=== PATIENT | female | born 1930 | race Caucasian/White ===

== ENCOUNTER 2017-06-14 02:42 | Inpatient (IN) ==
[2017-06-14] MEDS ORDERED: methylPREDNISolone SOD SUC 125 MG/2 ML VIAL IV STA (02:49)
[2017-06-14] MEDS ORDERED: FAMOTIDINE 20 MG/2 ML VIAL IV STA (02:49)
[2017-06-14] MEDS ORDERED: FAMOTIDINE 20 MG/2 ML VIAL IV ONE (02:58)
[2017-06-14] MEDS ORDERED: methylPREDNISolone SOD SUC 125 MG/2 ML VIAL ONE (02:58)
[2017-06-14] MEDS ORDERED: ETOMIDATE 20 MG/10 ML VIAL IV STA (03:11)
[2017-06-14] MEDS ORDERED: SUCCINYLCHOLINE 200 MG/10 ML VIAL IV STA (03:11)
[2017-06-14] MEDS ORDERED: SUCCINYLCHOLINE 200 MG/10 ML VIAL ONE (03:15)
[2017-06-14] MEDS ORDERED: ETOMIDATE 20 MG/10 ML VIAL IV ONE (03:15)
[2017-06-14] MEDS ORDERED: PROPOFOL 1,000 MG/100 ML BOTTLE IV ONE (03:16)
[2017-06-14] MEDS ORDERED: fentaNYL 100 MCG/2 ML VIAL IV STA (03:20)
[2017-06-14] MEDS ORDERED: fentaNYL 100 MCG/2 ML VIAL ONE (03:22)
[2017-06-14] MEDS: SODIUM CHLORIDE 0.9% 1,000 ML IV SCH ×3 (03:23→18:00)
[2017-06-14] MEDS: PROPOFOL 1,000 MG/100 ML BOTTLE IV SCH (03:23)
[2017-06-14 03:35] LABS: Basophils % 0.5 % (0.0-0.8); Eosinophils # 0.3 10*3/uL (0.0-0.87); Eosinophils % 3.2 % (0.00-10.9); Hematocrit 35.9 VOL% (35.7-47.0); Hemoglobin 11.6 GM/DL (12.0-16.0); Immature Granulocytes % 0.2 %; Immature Granulocytes Absolute 0.02 #; Lymphocytes % 34.9 % (21.3-54.2); Mean Corpuscular HGB Conc 32.3 GM/DL (32-36); Mean Corpuscular Hemoglobin 30 PG (27-34); Mean Corpuscular Volume 91.3 FL (87-102); Monocytes # 0.8 10*3/uL (0.11-0.8); Monocytes % 9.2 % (1.7-12.7); Neutrophils # 4.4 10*3/uL (1.4-7.4); Platelet Count 235 T/CUMM (130-400); Red Blood Count 3.93 MC/CUMM (3.8-5.5); Red Cell Distribution Width 14.9 % (9.3-17.3); White Blood Count 8.5 T/CUMM (4-12)
[2017-06-14] MEDS ORDERED: VECURONIUM 10 MG VIAL IV ONE (03:37)
[2017-06-14] MEDS ORDERED: VECURONIUM 10 MG VIAL IV STA (03:38)
[2017-06-14 03:49] LABS: Calcium 9.1 MG/DL (8.5-10.1); Osmolality,Calculated 278.7 MOS/KG (273-304)
[2017-06-14] MEDS ORDERED: DEXTROSE 50% 25 GM/50 ML VIAL IV PRN (03:55)
[2017-06-14] MEDS ORDERED: GLUCAGON 1 MG VIAL IM PRN (03:55)
[2017-06-14] MEDS ORDERED: ALBUTEROL 2.5 MG/3 ML NEB RESP TX PRN (03:55)
[2017-06-14 03:59] LABS: ABG Base Excess -5.1 MMOL/L (-2.5-2.5); ABG Oxygen Saturation 98.5 % (95-100); ABG PCO2 43.1 MM HG (35-48); ABG PH 7.305 (7.35-7.45); ABG TCO2 22.3 MMOL/L (23-27); Allen Test Positive; Pt O2 Delivery Device Ventilator
[2017-06-14] MEDS ORDERED: hydrALAZINE 20 MG/1 ML VIAL IV PRN (04:05)
--- NOTE | 2017-06-14 04:19 | Hospitalist History & Physical ---
Assessment and Plan (1) Angioedema Status: Acute Current Visit: Yes (2) DM2 (diabetes mellitus, type 2) Status: Chronic Current Visit: No (3) Dyslipidemia Status: Chronic Current Visit: No (4) Hypertension Status: Chronic Assessment and plan: Patient required intubation in the emergency room. We will continue ventilator support and schedule her with antihistamines and steroids. Will continue home meds as appropriate. Hopefully she can be weaned off the ventilator fairly quickly. Will consult pulmonary for their input. Reevaluate patient in the morning and monitor labs. Current Visit: No Qualifiers: Hypertension type: essential hypertension Qualified Code(s): I10 - Essential (primary) hypertension History of Present Illness Chief complaint: Angioedema History of present illness: Ms. 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 Patient woke up with tongue swelling. Patient could not breathe and she had a medical alert button to push and called 911. After that she subsequently called her son. Her son came up to the hospital met her up here. Her tongue was protruding out of her mouth and swelling consistent with angioedema. She was intubated in the emergency room I was consulted for the admission. Home Medications Medication Instructions Recorded Confirmed Type Aspirin [Ecotrin] 81 mg PO DAILY 07/03/15 06/14/17 History Atorvastatin [Lipitor] 20 mg PO BEDTIME 07/03/15 06/14/17 History Clopidogrel [Plavix] 75 mg PO DAILY 07/03/15 06/14/17 History Furosemide Tab [Lasix Tab] 40 mg PO DAILY PRN 07/03/15 06/14/17 History Gabapentin 300 mg PO TID 07/03/15 06/14/17 History Lisinopril 40 mg PO DAILY 07/03/15 06/14/17 History Magnesium Chloride [Mag Delay] 128 mg PO BID 07/03/15 06/14/17 History Metoprolol Succinate Xl [Toprol Xl] 50 mg PO DAILY 07/03/15 06/14/17 History Nitroglycerin [Nitroglycerin SL 0.4 mg SL Q5M PRN 07/03/15 06/14/17 History Tab] Pantoprazole Tab [Protonix Tab] 40 mg PO BEDTIME 07/03/15 06/14/17 History Primidone 75 mg PO TID 07/03/15 06/14/17 History Rasagiline [Azilect] 1 mg PO DAILY 07/03/15 06/14/17 History Insulin NPH Hum/Reg Insulin Hm 22 units SUBCUT DAILY W/SUPPER 07/14/15 06/14/17 History [NovoLIN 70/30] Insulin NPH Hum/Reg Insulin Hm 32 units SUBCUT AC BREAKFAST 07/14/15 06/14/17 History [NovoLIN 70/30] Potassium Gluconate 550 mg PO DAILY 10/07/16 06/14/17 History Sitagliptin Phos/Metformin HCl 2 each PO DAILY W/SUPPER 10/07/16 06/14/17 History [Janumet Xr 50-1,000 mg Tablet] Cyanocobalamin (Vitamin B-12) 1,000 mcg PO DAILY 12/22/16 06/14/17 History [Vitamin B-12] Ferrous Sulfate [Ferrous Sulfate 65 mg PO DAILY 06/14/17 06/14/17 History Cap] Allergies Allergy/AdvReac Type Severity Reaction Status Date / Time Erythromycin Base Allergy Unknown Unknown/Unable Verified 06/14/17 02:54 to obtain ciprofloxacin Allergy Unknown/Unable Verified 06/14/17 02:54 to obtain sulfamethoxazole Allergy Unknown/Unable Verified 06/14/17 02:54 [From Bactrim] to obtain trimethoprim [From Bactrim] Allergy Unknown/Unable Verified 06/14/17 02:54 to obtain Medical,Surgical,& Family Hx - Medical History Cardio: History of: CHF, CAD (history of stent), Hypertension, [place], Cardiovascular Problems (1 STENT 2012) Neurology: No history of: Seizures Endocrine: History of: Diabetes Mellitus (IDDM), Dyslipidemia Respiratory: History of: Bronchitis Gastrointestinal: History of: GERD, Polyps, GI Problems (6 INCHES OF COLON REMOVED, OCCASIONAL DIARREA) Musculoskeletal: History of: Back/Neck Problems (BACK SPASMS), Musculoskeletal Problems (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) Hematology: History of: Anemia - Surgical History Cardiac Surgeries: Sugical HX of: Cardiac Catheterization HEENT Surgeries: Surgical HX of: Eye Surgery (BILATERAL CATARACT SURGERY AND LASER) Abdominal Surgeries: Surgical HX of: Abdominal Surgery (6 INCHES OF COLON REMOVED), Appendectomy, Cholecystectomy, Colonoscopy, EGD Reproductive Surgeries: Surgical HX of;: Breast Surgery (RIGHT CYST REMOVAL), Hysterectomy Orthopedic Surgeries: Surgical HX of;: Total Knee Replacement (left) - Family History Family History: Reports;: Family Cancer (FATHER PROSTRATE), Family Diabetes ( MOTHER AND SISTERS), Family Heart Disease (MOTHER AND FATHER, 2 SISTERS), Family Hypertension (MOTHER AND FATHER, SIBLINGS), Family Stroke (SISTER) - Social History Smoking Status: Former smoker Frequency of Alcohol Use: None Type of Drug Use: None ROS unobtainable: due to endotracheal tube Exam - Constitutional Vitals: Period Temp Pulse Resp BP Sys/Walker Pulse Ox Last 24 Hr 97.7 F-97.7 F 80-80 17-18 190-190/105-105 98 General appearance: over weight - Head Head exam: Present: normal inspection - Eye Pupils: Present: MELINDA - ENT ENT exam: Present: other (ET tube in place) - Neck Neck exam: Present: normal inspection - Respiratory Respiratory exam: Present: clear to auscultation bilaterally - Cardiovascular Cardiovascular exam: Present: regular rate and rhythm - GI/Abdominal GI/Abdominal exam: Present: normal bowel sounds - Extremities Exam Extremities exam: Present: normal inspection, other (Patient has some prominent deposits in her calves. I discussed the issue with her son. He said they have been there for some time that she sees a specialist in [place] that these are protein deposits) - Back Exam Back exam: Present: normal inspection - Neurological Exam Neurological exam: Present: other (Sedated) Results - Labs CBC & BMP: 06/14/17 03:23 06/14/17 03:23
--- NOTE | 2017-06-14 04:27 | Emergency Department Note ---
I, Karly Sullivan, am scribing for, and in the presence of, Oracio Velazquez MD 02: 57. ICaroline Kevin Lee, MD, personally performed the services described in this documentation, ascribed by Karly Sullivan in my presence, and it is both accurate and complete . Arrival - Arrival Mode of Arrival: Stretcher Limitations: No Limitations Source: Patient, EMS Time Seen by Provider: 06/14/17 02:49 - History of Present Illness HPI Narrative: Pt is a 87 y/o female who came to ED by EMS for further evaluation of allergic reaction that suddenly started when she woke up. Pt notes waking up with tongue swollen, in which denies this happening before. 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 Pt was given 50mg IV of Benadryl en route. Pt has HTN and takes Lisinopril for awhile now. Pt is a former smoker. Onset (ago): hour(s) Consistency: constant Severity: moderate Severity scale (1-10): 6 Quality: fullness Allergies/Adverse Reactions: Allergies Allergy/AdvReac Type Severity Reaction Status Date / Time Erythromycin Base Allergy Unknown Unknown/Unable Verified 06/14/17 02:54 to obtain ciprofloxacin Allergy Unknown/Unable Verified 06/14/17 02:54 to obtain sulfamethoxazole Allergy Unknown/Unable Verified 06/14/17 02:54 [From Bactrim] to obtain trimethoprim [From Bactrim] Allergy Unknown/Unable Verified 06/14/17 02:54 to obtain Home Medications: Home Medications Medication Instructions Recorded Confirmed Type Aspirin [Ecotrin] 81 mg PO DAILY 07/03/15 06/14/17 History Atorvastatin [Lipitor] 20 mg PO BEDTIME 07/03/15 06/14/17 History Clopidogrel [Plavix] 75 mg PO DAILY 07/03/15 06/14/17 History Furosemide Tab [Lasix Tab] 40 mg PO DAILY PRN 07/03/15 06/14/17 History Gabapentin 300 mg PO TID 07/03/15 06/14/17 History Lisinopril 40 mg PO DAILY 07/03/15 06/14/17 History Magnesium Chloride [Mag Delay] 128 mg PO BID 07/03/15 06/14/17 History Metoprolol Succinate Xl [Toprol Xl] 50 mg PO DAILY 07/03/15 06/14/17 History Nitroglycerin [Nitroglycerin SL 0.4 mg SL Q5M PRN 07/03/15 06/14/17 History Tab] Pantoprazole Tab [Protonix Tab] 40 mg PO BEDTIME 07/03/15 06/14/17 History Primidone 75 mg PO TID 07/03/15 06/14/17 History Rasagiline [Azilect] 1 mg PO DAILY 07/03/15 06/14/17 History Insulin NPH Hum/Reg Insulin Hm 22 units SUBCUT DAILY W/SUPPER 07/14/15 06/14/17 History [NovoLIN 70/30] Insulin NPH Hum/Reg Insulin Hm 32 units SUBCUT AC BREAKFAST 07/14/15 06/14/17 History [NovoLIN 70/30] Potassium Gluconate 550 mg PO DAILY 10/07/16 06/14/17 History Sitagliptin Phos/Metformin HCl 2 each PO DAILY W/SUPPER 10/07/16 06/14/17 History [Janumet Xr 50-1,000 mg Tablet] Cyanocobalamin (Vitamin B-12) 1,000 mcg PO DAILY 12/22/16 06/14/17 History [Vitamin B-12] Ferrous Sulfate [Ferrous Sulfate 65 mg PO DAILY 06/14/17 06/14/17 History Cap] Review of System - Review of System 12 point system: reviewed and no additional remarkable complaints except as stated - Review of System Constitutional: Absent: fever, weakness Head/Ears/Nose/Throat: Absent: nasal drainage, sore throat Respiratory: Absent: cough, respiratory distress Cardiovascular: Absent: chest pain Gastrointestinal: Absent: abdominal pain, nausea, vomiting Musculoskeletal: Absent: neck pain Skin: Absent: rash Psychiatric: Absent: anxiety Allergic/Immunologic: Present: other (tongue swelling). 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) Hematology: History of: Anemia - Surgical History Cardiac Surgeries: Sugical HX of: Cardiac Catheterization HEENT Surgeries: Surgical HX of: Eye Surgery (BILATERAL CATARACT SURGERY AND LASER) Abdominal Surgeries: Surgical HX of: Abdominal Surgery (6 INCHES OF COLON REMOVED), Appendectomy, Cholecystectomy, Colonoscopy, EGD Reproductive Surgeries: Surgical HX of;: Breast Surgery (RIGHT CYST REMOVAL), Hysterectomy Orthopedic Surgeries: Surgical HX of;: Total Knee Replacement (left) - Family History Family History: Reports;: Family Cancer (FATHER PROSTRATE), Family Diabetes ( MOTHER AND SISTERS), Family Heart Disease (MOTHER AND FATHER, 2 SISTERS), Family Hypertension (MOTHER AND FATHER, SIBLINGS), Family Stroke (SISTER) - Social History Smoking Status: Former smoker Exam Vital Signs: Vital Signs Temperature 97.7 F 06/14/17 02:44 Pulse Rate 80 06/14/17 02:44 Respiratory Rate 18 06/14/17 04:08 Blood Pressure 190/105 06/14/17 02:44 O2 Sat by Pulse Oximetry 98 06/14/17 02:44 - General General appearance: alert, in no apparent distress - Head Head exam: Present: atraumatic, normocephalic - Eye Eye exam: Present: PERRL, EOMI - ENT ENT exam: Present: normal oropharynx, mucous membranes moist, other (angioedema on right side of tongue). Absent: mucous membranes dry - Neck Neck exam: Present: full ROM. Absent: tenderness - Chest Chest inspection: Present: symmetric chest wall rise. Absent: tenderness - Respiratory Respiratory exam: Present: normal lung sounds bilaterally. Absent: accessory muscle use, respiratory distress, stridor, wheezes - Cardiovascular Cardiovascular exam: Present: regular rate, normal rhythm, normal heart sounds - Extremities Exam Extremities exam: Present: full ROM. Absent: tenderness, pedal edema - Neurological Exam Neurological exam: Present: alert, oriented X3, CN II-XII intact. Absent: motor sensory deficit - Psychiatric Psychiatric exam: Present: normal affect, normal mood - Skin Skin exam: Present: warm, dry Course Course Narrative: during ED stay pts swelling worsened and started to involve Post OP decision made to intubate for airway protection Procedures - Intubation Time out performed: Yes sedative: Etomidate paralytic: Succinylcholine Laryngoscope: Dana ET Tube Size: 7.5 ET Tube Uncuffed: No Tube Secured Depth (cm): 21 Tube Secured Location: lips Tube Placement Confirmation: visualized tube passing through cords, equal breath sounds bilaterally, confirmation detector color change Patient Tolerated Procedure: well Intubation Complications: none Results - Labs CBC & BMP: 06/14/17 03:23 06/14/17 03:23 Lab Results: I have reviewed the patients labs Labs: Laboratory Tests 06/14/17 03:23 WBC 8.5 RBC 3.93 Hgb 11.6 L Hct 35.9 Plt Count 235 Laboratory Tests 06/14/17 06/14/17 03:23 03:50 ABG pH 7.305 L ABG pO2 167.0 H ABG Total CO2 22.3 L ABG Base Excess -5.1 L Sodium 138 Potassium 5.0 Chloride 107 Carbon Dioxide 27 Creatinine 1.00 Glucose 138 H - Diagnostic Findings Procedure: Chest x-ray: image reviewed by me (tube in good position) Disposition Clinical Impression: Angioedema Case discussed with: patient, patient's family Disposition: Still a Patient Condition: Guarded
--- NOTE | 2017-06-14 07:33 | XRay Report ---
Exam: XR chest 1V portable Indication: Endotracheal tube placement Comparison study: 12/22/2016 radiograph Findings: Endotracheal tube is now noted in place with the tip terminating approximately 3 cm from the bertrand. Enlargement of the cardiac silhouette is similar to prior. There has been development of diffuse interstitial opacities, which may represent pulmonary edema changes. No definite focal consolidation is identified. There is no pneumothorax or pleural effusion identified. Impression: Interval intubation with diffuse patchy interstitial opacities throughout the perihilar regions may represent pulmonary edema changes. Mild cardiomegaly. PROCEDURE INTERPRETED AT [facility] DEPARTMENT OF RADIOLOGY Final Report Signed by: Narinder Lazo
--- NOTE | 2017-06-14 07:59 | Pulmonology Consult Note ---
Assessment and Plan (1) Insulin dependent diabetes mellitus Status: Acute Assessment and plan: Managed with sliding scale insulin. Current Visit: No (2) Hypertension Status: Chronic Assessment and plan: Systolic blood pressure is 106. Very well controlled. Using as needed hydralazine. Lisinopril is being held. Current Visit: No Qualifiers: Hypertension type: essential hypertension Qualified Code(s): I10 - Essential (primary) hypertension (3) CAD (coronary artery disease) Status: Acute Assessment and plan: No complaints of chest pain. No signs of heart failure although there may be some mild interstitial edema. Will check BNP Current Visit: No (4) Angioedema Status: Acute Assessment and plan: Tongue swelling seems to be subsiding. I have added Benadryl to the famotidine and Solu-Medrol. We need to have ENT to assess. Current Visit: Yes History of Present Illness Chief complaint: Swollen tongue, dyspnea History of present illness: Ms. Hagan is a 87 year old female who has hypertension and takes 40 mg daily of lisinopril. She had the acute onset last night of difficulty breathing and tongue swelling. She was brought to the emergency room and was intubated. Presently on mechanical ventilation. She is responsive. Her tongue is gone down somewhat already. Home Medications Medication Instructions Recorded Confirmed Type Aspirin [Ecotrin] 81 mg PO DAILY 07/03/15 06/14/17 History Atorvastatin [Lipitor] 20 mg PO BEDTIME 07/03/15 06/14/17 History Clopidogrel [Plavix] 75 mg PO DAILY 07/03/15 06/14/17 History Furosemide Tab [Lasix Tab] 40 mg PO DAILY PRN 07/03/15 06/14/17 History Gabapentin 300 mg PO TID 07/03/15 06/14/17 History Lisinopril 40 mg PO DAILY 07/03/15 06/14/17 History Magnesium Chloride [Mag Delay] 128 mg PO BID 07/03/15 06/14/17 History Metoprolol Succinate Xl [Toprol Xl] 50 mg PO DAILY 07/03/15 06/14/17 History Nitroglycerin [Nitroglycerin SL 0.4 mg SL Q5M PRN 07/03/15 06/14/17 History Tab] Pantoprazole Tab [Protonix Tab] 40 mg PO BEDTIME 07/03/15 06/14/17 History Primidone 75 mg PO TID 07/03/15 06/14/17 History Rasagiline [Azilect] 1 mg PO DAILY 07/03/15 06/14/17 History Insulin NPH Hum/Reg Insulin Hm 22 units SUBCUT DAILY W/SUPPER 07/14/15 06/14/17 History [NovoLIN 70/30] Insulin NPH Hum/Reg Insulin Hm 32 units SUBCUT AC BREAKFAST 07/14/15 06/14/17 History [NovoLIN 70/30] Potassium Gluconate 550 mg PO DAILY 10/07/16 06/14/17 History Sitagliptin Phos/Metformin HCl 2 each PO DAILY W/SUPPER 10/07/16 06/14/17 History [Janumet Xr 50-1,000 mg Tablet] Cyanocobalamin (Vitamin B-12) 1,000 mcg PO DAILY 12/22/16 06/14/17 History [Vitamin B-12] Ferrous Sulfate [Ferrous Sulfate 65 mg PO DAILY 06/14/17 06/14/17 History Cap] Allergies Allergy/AdvReac Type Severity Reaction Status Date / Time Erythromycin Base Allergy Unknown Unknown/Unable Verified 06/14/17 02:54 to obtain ciprofloxacin Allergy Unknown/Unable Verified 06/14/17 02:54 to obtain sulfamethoxazole Allergy Unknown/Unable Verified 06/14/17 02:54 [From Bactrim] to obtain trimethoprim [From Bactrim] Allergy Unknown/Unable Verified 06/14/17 02:54 to obtain ROS unobtainable: due to endotracheal tube Exam (Pulmonay) H&P - Constitutional Vitals: Period Temp Pulse Resp BP Sys/Walker Pulse Ox Last 24 Hr 96.8 F-97.7 F 70-81 13-159 106-190/68-114 94-100 Exam: Patient is responsive. Vital signs normal. Pupils react to light. Orotracheal tube in place. The tip of her tongue protrudes and is mildly swollen. Neck is supple no bruits. Chest sounds clear equal breath sounds. Heart normal rate rhythm no murmurs. Abdomen soft nontender no masses. Extremities no clubbing or cyanosis. 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) Hematology: History of: Anemia - Surgical History Cardiac Surgeries: Sugical HX of: Cardiac Catheterization HEENT Surgeries: Surgical HX of: Eye Surgery (BILATERAL CATARACT SURGERY AND LASER) Abdominal Surgeries: Surgical HX of: Abdominal Surgery (6 INCHES OF COLON REMOVED), Appendectomy, Cholecystectomy, Colonoscopy, EGD Reproductive Surgeries: Surgical HX of;: Breast Surgery (RIGHT CYST REMOVAL), Hysterectomy Orthopedic Surgeries: Surgical HX of;: Total Knee Replacement (left) - Family History Family History: Reports;: Family Cancer (FATHER PROSTRATE), Family Diabetes ( MOTHER AND SISTERS), Family Heart Disease (MOTHER AND FATHER, 2 SISTERS), Family Hypertension (MOTHER AND FATHER, SIBLINGS), Family Stroke (SISTER) - Social History Smoking Status: Former smoker Frequency of Alcohol Use: None Type of Drug Use: None Results - Labs CBC & BMP: 06/14/17 03:23 06/14/17 03:23 Lab Results: I have reviewed the past 24 hour labs - Diagnostic Findings Procedure: Chest x-ray: image reviewed by me (ET tube good position. Mild interstitial edema noted.)
[2017-06-14] MEDS: INSULIN REGULAR 100 UNIT/ML SUBCUT SCH ×4 (08:59→20:22)
[2017-06-14] MEDS: methylPREDNISolone SOD SUC 125 MG/2 ML VIAL IV SCH ×3 (09:00→20:19)
[2017-06-14] MEDS: ASPIRIN EC 81 MG TABLET PO SCH (09:03)
[2017-06-14] MEDS: RASAGILINE 0.5 MG TABLET PO SCH (09:04)
[2017-06-14] MEDS: ENOXAPARIN 40 MG/0.4 ML SYRINGE SUBCUT SCH (09:05)
[2017-06-14] MEDS: FERROUS SULFATE 325 MG TABLET PO SCH (09:05)
[2017-06-14] MEDS: PRIMIDONE 50 MG TABLET PO SCH ×3 (09:06→20:22)
[2017-06-14] MEDS: CLOPIDOGREL 75 MG TABLET PO SCH (09:07)
[2017-06-14] MEDS: GABAPENTIN 300 MG CAPSULE PO SCH ×3 (09:07→20:22)
[2017-06-14] MEDS: POTASSIUM GLUCONATE 500 MG TABLET PO SCH (09:08)
[2017-06-14] MEDS: MAGNESIUM CHLORIDE 64 MG TABLET PO SCH ×2 (09:08→20:22)
[2017-06-14] MEDS: CYANOCOBALAMIN 500 MCG TABLET PO SCH (09:09)
[2017-06-14] MEDS: diphenhydrAMINE 50 MG/1 ML VIAL IV SCH ×3 (09:13→20:16)
[2017-06-14] MEDS: METOPROLOL SUCCINATE XL 50 MG TABLET PO SCH (09:24)
[2017-06-14] MEDS: FAMOTIDINE 20 MG/2 ML VIAL IV SCH (15:22)
[2017-06-14] MEDS: ATORVASTATIN 20 MG TABLET PO SCH (20:22)
[2017-06-15] MEDS: PROPOFOL 1,000 MG/100 ML BOTTLE IV SCH ×3 (00:18→20:32)
[2017-06-15 03:11] LABS: ABG Base Excess -3.1 MMOL/L (-2.5-2.5); ABG HCO3 21.8 MMOL/L (20-26); ABG PCO2 36.6 MM HG (35-48); ABG PH 7.378 (7.35-7.45); ABG TCO2 19.6 MMOL/L (23-27); Allen Test Positive; Pt O2 Delivery Device Ventilator
[2017-06-15] MEDS: diphenhydrAMINE 50 MG/1 ML VIAL IV SCH ×4 (03:30→21:53)
[2017-06-15] MEDS: FAMOTIDINE 20 MG/2 ML VIAL IV SCH ×2 (03:32→17:54)
[2017-06-15] MEDS: methylPREDNISolone SOD SUC 125 MG/2 ML VIAL IV SCH ×4 (03:34→21:52)
[2017-06-15 04:58] LABS: Basophils % 0.1 % (0.0-0.8); Hematocrit 32.8 VOL% (35.7-47.0); Hemoglobin 10.3 GM/DL (12.0-16.0); Immature Granulocytes % 0.5 %; Immature Granulocytes Absolute 0.05 #; Lymphocytes # 1.1 10*3/uL (1.4-4.0); Lymphocytes % 11.5 % (21.3-54.2); Mean Corpuscular HGB Conc 31.4 GM/DL (32-36); Mean Corpuscular Hemoglobin 29 PG (27-34); Mean Corpuscular Volume 90.9 FL (87-102); Mean Platelet Volume 10.5 FL (9.6-12.0); Monocytes # 0.4 10*3/uL (0.11-0.8); Monocytes % 4.6 % (1.7-12.7); Neutrophils # 7.6 10*3/uL (1.4-7.4); Neutrophils % 83.3 % (38.7-73.9); Platelet Count 224 T/CUMM (130-400); Red Blood Count 3.61 MC/CUMM (3.8-5.5); Red Cell Distribution Width 15.3 % (9.3-17.3); White Blood Count 9.2 T/CUMM (4-12)
[2017-06-15 05:27] LABS: Calcium 8.3 MG/DL (8.5-10.1); Osmolality,Calculated 285.4 MOS/KG (273-304); Potassium 5.1 MMOL/L (3.5-5.1)
--- NOTE | 2017-06-15 07:01 | Pulmonology Progress Note ---
Pulmonary - PN: Subj Interval history: Patient is an 87-year-old white lady with diabetes and hypertension she apparently was taking lisinopril for blood pressure. She came in with difficulty breathing and her tongue was swelling. She was intubated to protect her airway. She is much better now and is certainly stable on the ventilator. Exam (Progress Note) - Constitutional Vitals: Period Temp Pulse Resp BP Sys/Walker Pulse Ox Last 24 Hr 96.7 F-97.9 F 53-77 12-24 88-129/47-83 98-100 General appearance: normal weight, no acute distress (She is alert on the ventilator) - Head Head exam: Present: normal inspection, normocephalic - Eye Eye exam: Present: EOMI. Absent: scleral icterus Pupils: Present: MELINDA - ENT ENT exam: Present: other (ET tube is in good position. Her tongue does not look swollen at all now) - Neck Neck exam: Present: normal inspection. Absent: lymphadenopathy, thyromegaly - Respiratory Respiratory exam: Present: clear to auscultation bilaterally. Absent: wheezes - Cardiovascular Cardiovascular exam: Present: regular rate and rhythm. Absent: gallop, systolic murmur - GI/Abdominal GI/Abdominal exam: Present: normal bowel sounds, soft. Absent: distended, organomegaly, tenderness - Extremities Exam Extremities exam: Absent: calf tenderness, edema - Neurological Exam Neurological exam: Present: alert - Psychiatric Psychiatric exam: Absent: anxious - Skin Skin exam: Present: warm, dry Results - Labs CBC & BMP: 06/15/17 04:18 06/15/17 04:18 Labs: PO2 is 129 with a PCO2 of 36 and a pH of 7.37 - Diagnostic Findings Procedure: Chest x-ray: image reviewed by me, report reviewed by me (Chest x- ray is clear) Assessment and Plan (1) Insulin dependent diabetes mellitus Status: Acute Assessment and plan: Patient is a diabetic on insulin. Her glucose was 162 this morning. Current Visit: No (2) Hypertension Status: Chronic Assessment and plan: Patient's blood pressure and heart rate are stable. Current Visit: No Qualifiers: Hypertension type: essential hypertension Qualified Code(s): I10 - Essential (primary) hypertension (3) CAD (coronary artery disease) Status: Acute Assessment and plan: She is not having any chest pain and appears to be stable hemodynamically. Current Visit: No (4) Angioedema Status: Acute Assessment and plan: Patient presented with angioedema but she looks good now. We will get ENT to check her hypopharynx. She can probably come off the ventilator soon. Current Visit: Yes
[2017-06-15] MEDS: SODIUM CHLORIDE 0.9% 1,000 ML IV SCH (07:31)
--- NOTE | 2017-06-15 08:04 | XRay Report ---
History is ventilator management Comparison 06/14/2017 The heart is mildly enlarged. ET tube tip remains at T5 There remain mild the basilar interstitial and hazy pulmonary opacities more pronounced on the right with mild improvement in the interval. The upper lung mar are relatively clear. The vascular congestion is improved Impression: Interval improvement with mild residual right greater than left basilar infiltrates versus asymmetric edema PROCEDURE INTERPRETED AT [facility] DEPARTMENT OF RADIOLOGY Final Report Signed by: Dr. Emili Hunt
[2017-06-15] MEDS: INSULIN REGULAR 100 UNIT/ML SUBCUT SCH ×4 (09:16→21:49)
[2017-06-15] MEDS: RASAGILINE 0.5 MG TABLET PO SCH (09:17)
[2017-06-15] MEDS: CLOPIDOGREL 75 MG TABLET PO SCH (09:18)
[2017-06-15] MEDS: CYANOCOBALAMIN 500 MCG TABLET PO SCH (09:19)
[2017-06-15] MEDS: ASPIRIN EC 81 MG TABLET PO SCH (09:19)
[2017-06-15] MEDS: FERROUS SULFATE 325 MG TABLET PO SCH (09:20)
[2017-06-15] MEDS: GABAPENTIN 300 MG CAPSULE PO SCH ×3 (09:20→21:55)
[2017-06-15] MEDS: MAGNESIUM CHLORIDE 64 MG TABLET PO SCH ×2 (09:30→21:55)
[2017-06-15] MEDS: METOPROLOL SUCCINATE XL 50 MG TABLET PO SCH (09:38)
[2017-06-15] MEDS: POTASSIUM GLUCONATE 500 MG TABLET PO SCH (09:38)
[2017-06-15] MEDS: PRIMIDONE 50 MG TABLET PO SCH ×3 (09:38→21:55)
[2017-06-15] MEDS: ENOXAPARIN 40 MG/0.4 ML SYRINGE SUBCUT SCH (09:43)
--- NOTE | 2017-06-15 10:11 | Hospitalist Progress Note ---
Assessment and Plan - Time spent with patient Time spent with patient: Greater than 30 minutes (1) Angioedema Status: Resolved Assessment and plan: Plan for CPAP trial and extubation today. Avoid PHIL inhibitors. Current Visit: Yes Qualifiers: Encounter type: subsequent encounter Qualified Code(s): T78.3XXD - Angioneurotic edema, subsequent encounter (2) Insulin dependent diabetes mellitus Status: Chronic Assessment and plan: Sliding scale insulin. Accu-Cheks under control. Current Visit: Yes (3) Hypertension Status: Chronic Assessment and plan: Stop lisinopril. Current Visit: Yes Qualifiers: Hypertension type: essential hypertension Qualified Code(s): I10 - Essential (primary) hypertension (4) CAD (coronary artery disease) Status: Chronic Current Visit: No (5) Dyslipidemia Status: Chronic Current Visit: No Hospitalist: Subjective Interval history: 87-year-old female admitted to the ICU with acute respiratory failure secondary to angioedema related to PHIL inhibitors. She has improved and is now on CPAP trials. No acute events overnight. Exam - Constitutional Vitals: Period Temp Pulse Resp BP Sys/Walker Pulse Ox Last 24 Hr 96.7 F-97.9 F 53-66 12-24 88-129/47-83 98-100 Exam: Constitutional System: No distress. No tremulousness. Lightly sedated. Responsive and writes on the clipboard. Follows all commands. Head: Normocephalic, atraumatic. Ears, Nose and Throat System: No pain or tenderness. No epistaxis or discharge. Angioedema has resolved. Tongue is back to baseline. ET tube in place Eyes System: Pupils equal, round, and reactive. Extraocular muscles intact. Neck: Supple, without adenopathy, No jugular venous distention. No thyromegaly, neck mass, or prior surgery apparent. Respiratory System: Chest clear to auscultation. Cardiovascular System: Heart with regular rate and rhythm. No murmur. GI System: Abdomen soft, nontender. Normo active bowel sounds present. Musculoskeletal System: limbs with no pedal edema. Full distal pulses. Neurological System: No discernable sensory deficit. Psychiatric System: Conversation is rational Results - Labs CBC & BMP: 06/15/17 04:18 06/15/17 04:18 Lab Results: I have reviewed the past 24 hour labs - Diagnostic Findings Procedure: Chest x-ray: image reviewed by me, report reviewed by me
[2017-06-15] MEDS ORDERED: FUROSEMIDE 40 MG TABLET PO PRN (10:12)
--- NOTE | 2017-06-15 16:30 | Consultation ---
Assessment and Plan - Time spent with patient Time spent with patient: Less than 30 minutes (1) Respiratory obstruction Status: Acute Assessment and plan: Bedside laryngoscopy reveals a near complete resolution of angioedema I feel the patient is as medically safe as she will be to proceed with extubation. I have no additional recommendations at this time as her tongue base edema has resolved and she has no residual anterior posterior tongue base edema. Thank you very much for this consultation if there are any additional questions please do not hesitate to ask Current Visit: Yes (2) Angioedema Status: Resolved Current Visit: Yes Qualifiers: Encounter type: subsequent encounter Qualified Code(s): T78.3XXD - Angioneurotic edema, subsequent encounter History of Present Illness - Data of Consult Patient: new to practice Consult date: 06/15/17 Requesting Physician: Homer Hernandez - Consult Narrative Reason for consult: Angioedema History of present illness: Ms. Hagan is a 87 year old female who developed angioedema from lisinopril presumably ultimately requiring intubation and ENT is consulted to evaluate the larynx to determine for possible extubation. The patient is remarkably alert though intubated and is able to follow commands. Was able to discuss with her and she was able to nonverbally understand the situation and answer questions or nonverbal fashion. CC: Elsy Terrazas MD - Home Medications and Allergies Home Medications: Home Medications Medication Instructions Recorded Confirmed Type Aspirin [Ecotrin] 81 mg PO DAILY 07/03/15 06/14/17 History Atorvastatin [Lipitor] 20 mg PO BEDTIME 07/03/15 06/14/17 History Clopidogrel [Plavix] 75 mg PO DAILY 07/03/15 06/14/17 History Furosemide Tab [Lasix Tab] 40 mg PO DAILY PRN 07/03/15 06/14/17 History Gabapentin 300 mg PO TID 07/03/15 06/14/17 History Lisinopril 40 mg PO DAILY 07/03/15 06/14/17 History Magnesium Chloride [Mag Delay] 128 mg PO BID 07/03/15 06/14/17 History Metoprolol Succinate Xl [Toprol Xl] 50 mg PO DAILY 07/03/15 06/14/17 History Nitroglycerin [Nitroglycerin SL 0.4 mg SL Q5M PRN 07/03/15 06/14/17 History Tab] Pantoprazole Tab [Protonix Tab] 40 mg PO BEDTIME 07/03/15 06/14/17 History Primidone 75 mg PO TID 07/03/15 06/14/17 History Rasagiline [Azilect] 1 mg PO DAILY 07/03/15 06/14/17 History Insulin NPH Hum/Reg Insulin Hm 22 units SUBCUT DAILY W/SUPPER 07/14/15 06/14/17 History [NovoLIN 70/30] Insulin NPH Hum/Reg Insulin Hm 32 units SUBCUT AC BREAKFAST 07/14/15 06/14/17 History [NovoLIN 70/30] Potassium Gluconate 550 mg PO DAILY 10/07/16 06/14/17 History Sitagliptin Phos/Metformin HCl 2 each PO DAILY W/SUPPER 10/07/16 06/14/17 History [Janumet Xr 50-1,000 mg Tablet] Cyanocobalamin (Vitamin B-12) 1,000 mcg PO DAILY 12/22/16 06/14/17 History [Vitamin B-12] Ferrous Sulfate [Ferrous Sulfate 65 mg PO DAILY 06/14/17 06/14/17 History Cap] Allergies/Adverse Reactions: Allergies Allergy/AdvReac Type Severity Reaction Status Date / Time Erythromycin Base Allergy Unknown Unknown/Unable Verified 06/14/17 02:54 to obtain ciprofloxacin Allergy Unknown/Unable Verified 06/14/17 02:54 to obtain sulfamethoxazole Allergy Unknown/Unable Verified 06/14/17 02:54 [From Bactrim] to obtain trimethoprim [From Bactrim] Allergy Unknown/Unable Verified 06/14/17 02:54 to obtain ROS unobtainable: due to endotracheal tube Medical,Surgical,& Family Hx - Medical History Cardio: History of: CHF, CAD (history of stent), Hypertension, NM, Cardiovascular Problems (1 STENT 2012) Neurology: No history of: Seizures Endocrine: History of: Diabetes Mellitus (IDDM), Dyslipidemia Respiratory: History of: Bronchitis Gastrointestinal: History of: GERD, Polyps, GI Problems (6 INCHES OF COLON REMOVED, OCCASIONAL DIARREA) Musculoskeletal: History of: Back/Neck Problems (BACK SPASMS), Musculoskeletal Problems (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) Hematology: History of: Anemia - Surgical History Cardiac Surgeries: Sugical HX of: Cardiac Catheterization HEENT Surgeries: Surgical HX of: Eye Surgery (BILATERAL CATARACT SURGERY AND LASER) Abdominal Surgeries: Surgical HX of: Abdominal Surgery (6 INCHES OF COLON REMOVED), Appendectomy, Cholecystectomy, Colonoscopy, EGD Reproductive Surgeries: Surgical HX of;: Breast Surgery (RIGHT CYST REMOVAL), Hysterectomy Orthopedic Surgeries: Surgical HX of;: Total Knee Replacement (left) - Family History Family History: Reports;: Family Cancer (FATHER PROSTRATE), Family Diabetes ( MOTHER AND SISTERS), Family Heart Disease (MOTHER AND FATHER, 2 SISTERS), Family Hypertension (MOTHER AND FATHER, SIBLINGS), Family Stroke (SISTER) - Social History Smoking Status: Former smoker Frequency of Alcohol Use: None Type of Drug Use: None Exam - Constitutional Vitals: Period Temp Pulse Resp BP Sys/Walker Pulse Ox Last 24 Hr 97.3 F-97.9 F 53-72 12-28 88-132/47-73 99-100 General appearance: normal weight, other (Intubated though awake and somewhat alert) - Head Head exam: Present: normal inspection, normocephalic - Eye Eye exam: Present: EOMI Pupils: Present: MELINDA - ENT ENT exam: Present: normal exam, normal external ear exam, normal oropharynx, other (Obstructed exam secondary to endotracheal tube and right nasogastric tube. Bedside laryngoscopy was performed and endotracheal tube was visualized passing through the vocal folds with mild edema at best right vocal fold was able to be visualized tongue base revealed no additional or continued edema.) - Neck Neck exam: Present: normal inspection - Respiratory Respiratory exam: Present: other (Intubated) - Cardiovascular Cardiovascular exam: Present: regular rate and rhythm (Per monitor) - GI/Abdominal GI/Abdominal exam: Present: soft - Extremities Exam Extremities exam: Present: normal inspection, normal capillary refill - Neurological Exam Neurological exam: Present: alert (Surprisingly able to evaluate though she is intubated), oriented X3, CN II-XII intact - Psychiatric Psychiatric exam: Present: normal affect (Surprisingly able to evaluate though she is intubated), normal mood - Skin Skin exam: Present: normal color, warm Results - Labs CBC & BMP: 06/15/17 04:18 06/15/17 04:18 Lab Results: I have reviewed the past 24 hour labs
[2017-06-15] MEDS: ATORVASTATIN 20 MG TABLET PO SCH (21:53)
[2017-06-15] MEDS: MAGNESIUM GLUCONATE 200 MG/ML 30 ML/BOTTLE PO SCH (23:16)
[2017-06-16 03:20] LABS: Allen Test Positive; Pt O2 Delivery Device Ventilator
[2017-06-16 03:24] LABS: ABG Base Excess -2.3 MMOL/L (-2.5-2.5); ABG HCO3 22.5 MMOL/L (20-26); ABG Oxygen Saturation 98.4 % (95-100); ABG PH 7.372 (7.35-7.45); ABG TCO2 20.7 MMOL/L (23-27)
[2017-06-16] MEDS: diphenhydrAMINE 50 MG/1 ML VIAL IV SCH ×3 (03:30→16:06)
[2017-06-16] MEDS: FAMOTIDINE 20 MG/2 ML VIAL IV SCH ×2 (03:32→18:08)
[2017-06-16] MEDS: methylPREDNISolone SOD SUC 125 MG/2 ML VIAL IV SCH ×4 (03:34→21:25)
--- NOTE | 2017-06-16 07:41 | XRay Report ---
History is ventilator management Comparison 06/15/2017 The heart is mildly enlarged. ET tube tip is at T5 Minimal hazy opacities at the right lung base unchanged without more focal consolidation. Impression: No interval change PROCEDURE INTERPRETED AT [facility] [place] DEPARTMENT OF RADIOLOGY Final Report Signed by: Dr. Emili Hunt
--- NOTE | 2017-06-16 08:33 | Pulmonology Progress Note ---
Pulmonary - PN: Subj Interval history: Patient is an 87-year-old white lady with diabetes and hypertension she apparently was taking lisinopril for blood pressure. She came in with difficulty breathing and her tongue was swelling. She was intubated to protect her airway. She is much better now and is certainly stable on the ventilator. She has been stable on the ventilator and her angioedema has cleared. ENT evaluated and felt like the swelling is much better. Her chest x-ray is clear and she is doing well on CPAP. Will extubate today. Exam (Progress Note) - Constitutional Vitals: Period Temp Pulse Resp BP Sys/Walker Pulse Ox Last 24 Hr 96.8 F-97.8 F 54-72 12-28 89-132/46-89 97-100 Exam: General appearance: normal weight, no acute distress (She is alert on the ventilator. She does not have any distress.) - Head Head exam: Present: normal inspection, normocephalic - Eye Eye exam: Present: EOMI. Absent: scleral icterus Pupils: Present: MELINDA - ENT ENT exam: Present: other (ET tube is in good position. Her tongue does not look swollen at all now) - Neck Neck exam: Present: normal inspection. Absent: lymphadenopathy, thyromegaly - Respiratory Respiratory exam: Present: clear to auscultation bilaterally. Absent: wheezes - Cardiovascular Cardiovascular exam: Present: regular rate and rhythm. Absent: gallop, systolic murmur - GI/Abdominal GI/Abdominal exam: Present: normal bowel sounds, soft. Absent: distended, organomegaly, tenderness - Extremities Exam Extremities exam: Absent: calf tenderness, edema - Neurological Exam Neurological exam: Present: alert, she moves her extremities well. - Psychiatric Psychiatric exam: Absent: anxious - Skin Skin exam: Present: warm, dry Results - Labs CBC & BMP: 06/15/17 04:18 06/15/17 04:18 Labs: PO2 is 119 with a PCO2 of 39 and a pH of 7.37 - Diagnostic Findings Procedure: Chest x-ray: image reviewed by me, report reviewed by me (Chest x- ray is clear.) Assessment and Plan (1) Insulin dependent diabetes mellitus Status: Chronic Assessment and plan: Patient is a diabetic on insulin. Her glucose was 224 this morning. Current Visit: Yes (2) Hypertension Status: Chronic Assessment and plan: Patient's blood pressure and heart rate are stable. Current Visit: Yes Qualifiers: Hypertension type: essential hypertension Qualified Code(s): I10 - Essential (primary) hypertension (3) CAD (coronary artery disease) Status: Chronic Assessment and plan: She is not having any chest pain and appears to be stable hemodynamically. Current Visit: No (4) Angioedema Status: Resolved Assessment and plan: Patient presented with angioedema but she looks good now. Her swelling has gone down nicely. We will plan to extubate today. Current Visit: Yes Qualifiers: Encounter type: subsequent encounter Qualified Code(s): T78.3XXD - Angioneurotic edema, subsequent encounter
[2017-06-16] MEDS: PROPOFOL 1,000 MG/100 ML BOTTLE IV SCH (12:26)
[2017-06-16] MEDS: INSULIN REGULAR 100 UNIT/ML SUBCUT SCH ×4 (12:27→21:24)
[2017-06-16] MEDS: PRIMIDONE 50 MG TABLET PO SCH ×3 (15:41→21:29)
[2017-06-16] MEDS: ASPIRIN EC 81 MG TABLET PO SCH (15:43)
[2017-06-16] MEDS: CYANOCOBALAMIN 500 MCG TABLET PO SCH (15:43)
[2017-06-16] MEDS: CLOPIDOGREL 75 MG TABLET PO SCH (15:44)
[2017-06-16] MEDS: RASAGILINE 0.5 MG TABLET PO SCH (15:44)
[2017-06-16] MEDS: GABAPENTIN 300 MG CAPSULE PO SCH ×3 (15:44→21:28)
[2017-06-16] MEDS: FERROUS SULFATE 325 MG TABLET PO SCH (15:45)
[2017-06-16] MEDS: METOPROLOL SUCCINATE XL 50 MG TABLET PO SCH (15:55)
[2017-06-16] MEDS: MAGNESIUM CHLORIDE 64 MG TABLET PO SCH ×2 (15:55→21:30)
[2017-06-16] MEDS: POTASSIUM GLUCONATE 500 MG TABLET PO SCH (15:56)
[2017-06-16] MEDS: MAGNESIUM GLUCONATE 200 MG/ML 30 ML/BOTTLE PO SCH (15:58)
[2017-06-16] MEDS: ENOXAPARIN 40 MG/0.4 ML SYRINGE SUBCUT SCH (16:00)
[2017-06-16] MEDS ORDERED: NITROGLYCERIN SL 0.4 MG TABLET SL PRN (16:04)
--- NOTE | 2017-06-16 16:04 | Hospitalist Progress Note ---
Assessment and Plan (1) Angioedema Status: Resolved Assessment and plan: The patient was extubated successfully today. Will transfer to the floor. Avoid PHIL inhibitors. Current Visit: Yes Qualifiers: Encounter type: subsequent encounter Qualified Code(s): T78.3XXD - Angioneurotic edema, subsequent encounter (2) Insulin dependent diabetes mellitus Status: Chronic Assessment and plan: Sliding scale insulin. Accu-Cheks under control. Current Visit: Yes (3) Hypertension Status: Chronic Assessment and plan: Stop lisinopril. Current Visit: Yes Qualifiers: Hypertension type: essential hypertension Qualified Code(s): I10 - Essential (primary) hypertension (4) CAD (coronary artery disease) Status: Chronic Current Visit: No (5) Dyslipidemia Status: Chronic Current Visit: No Hospitalist: Subjective Interval history: Patient seen and examined. No acute events overnight. Case discussed with nursing staff. Labs reviewed. Patient extubated this morning. Doing well. Swelling has resolved. Exam - Constitutional Vitals: Period Temp Pulse Resp BP Sys/Walker Pulse Ox Last 24 Hr 96.8 F-97.6 F 53-65 12-19 89-123/46-89 97-100 Exam: Constitutional System: No distress. No tremulousness. Alert and awake. Pleasant & cooperative, follows all commands. Head: Normocephalic, atraumatic. Ears, Nose and Throat System: No pain or tenderness. No epistaxis or discharge. Angioedema has resolved. Tongue is back to baseline. Eyes System: Pupils equal, round, and reactive. Extraocular muscles intact. Neck: Supple, without adenopathy, No jugular venous distention. No thyromegaly, neck mass, or prior surgery apparent. Respiratory System: Chest clear to auscultation. Cardiovascular System: Heart with regular rate and rhythm. No murmur. GI System: Abdomen soft, nontender. Normo active bowel sounds present. Musculoskeletal System: limbs with no pedal edema. Full distal pulses. Neurological System: No discernable sensory deficit. Psychiatric System: Conversation is rational Results - Labs CBC & BMP: 06/15/17 04:18 06/15/17 04:18 Lab Results: I have reviewed the past 24 hour labs
[2017-06-16] MEDS ORDERED: sitaGLIPtin 100 MG TABLET PO SCH (17:00)
[2017-06-16] MEDS ORDERED: INSULIN NPH/REGULAR 70/30 100 UNIT/ML SUBCUT SCH (17:00)
[2017-06-16] MEDS ORDERED: PANTOPRAZOLE 40 MG TABLET PO SCH (21:00)
[2017-06-16] MEDS: ATORVASTATIN 20 MG TABLET PO SCH (21:30)
[2017-06-17] MEDS: FAMOTIDINE 20 MG/2 ML VIAL IV SCH (03:48)
[2017-06-17] MEDS: methylPREDNISolone SOD SUC 125 MG/2 ML VIAL IV SCH ×2 (03:50→08:59)
[2017-06-17] MEDS ORDERED: INSULIN NPH/REGULAR 70/30 100 UNIT/ML SUBCUT SCH (07:30)
[2017-06-17 07:54] VITALS: BP 111/67
--- NOTE | 2017-06-17 08:04 | Pulmonology Progress Note ---
Pulmonary - PN: Subj Interval history: Patient is an 87-year-old white lady with diabetes and hypertension she apparently was taking lisinopril for blood pressure. She came in with difficulty breathing and her tongue was swelling. She was intubated to protect her airway. She is much better now and is certainly stable on the ventilator. She has been stable on the ventilator and her angioedema has cleared. ENT evaluated and felt like the swelling is much better. Her chest x-ray is clear and she is doing well on CPAP. She was extubated yesterday and has not had any difficulties. Her tongue swelling and throat are better she is talking clearly. She is not having any respiratory distress. Her chest x-ray is clear. Her vital signs are stable. She is doing much better and can go to a regular room. She should be able to go home soon. Exam (Progress Note) - Constitutional Vitals: Period Temp Pulse Resp BP Sys/Walker Pulse Ox Last 24 Hr 97 F-98.7 F 57-88 11-20 105-130/57-77 88-100 Exam: General appearance: normal weight, no acute distress (She is alert and talking and has no distress.) - Head Head exam: Present: normal inspection, normocephalic - Eye Eye exam: Present: EOMI. Absent: scleral icterus Pupils: Present: MELINDA - ENT ENT exam: Present: Her tongue swelling has gone down. - Neck Neck exam: Present: normal inspection. Absent: lymphadenopathy, thyromegaly - Respiratory Respiratory exam: Present: clear to auscultation bilaterally. Absent: wheezes - Cardiovascular Cardiovascular exam: Present: regular rate and rhythm. Absent: gallop, systolic murmur - GI/Abdominal GI/Abdominal exam: Present: normal bowel sounds, soft. Absent: distended, organomegaly, tenderness - Extremities Exam Extremities exam: Absent: calf tenderness, edema - Neurological Exam Neurological exam: Present: alert, she moves her extremities well. - Psychiatric Psychiatric exam: Absent: anxious - Skin Skin exam: Present: warm, dry Results - Labs CBC & BMP: 06/15/17 04:18 06/15/17 04:18 - Diagnostic Findings Procedure: Chest x-ray: image reviewed by me, report reviewed by me (Chest x- ray is clear) Assessment and Plan (1) Insulin dependent diabetes mellitus Status: Chronic Assessment and plan: Patient is a diabetic on insulin. Her glucose was 308 this morning. Current Visit: Yes (2) Hypertension Status: Chronic Assessment and plan: Patient's blood pressure and heart rate are stable. Current Visit: Yes Qualifiers: Hypertension type: essential hypertension Qualified Code(s): I10 - Essential (primary) hypertension (3) CAD (coronary artery disease) Status: Chronic Assessment and plan: She is not having any chest pain and appears to be stable hemodynamically. Current Visit: No (4) Angioedema Status: Resolved Assessment and plan: Patient presented with angioedema but she looks good now. Her swelling has gone down nicely. She is not having any problem off the ventilator. Her speech is normal she has no stridor or swelling. Her lungs are clear. She is doing well and can increase her activity. She is stable from pulmonary standpoint and I will sign off, thanks. Current Visit: Yes Qualifiers: Encounter type: subsequent encounter Qualified Code(s): T78.3XXD - Angioneurotic edema, subsequent encounter
--- NOTE | 2017-06-17 08:11 | XRay Report ---
History: Diabetes, hypertension. Recently extubated. History of coronary artery disease Date: 06/17/2017 Study: Chest x-ray AP portable Comparison exam: June 16, 2017 The endotracheal and nasogastric tubes have been removed. There is continued cardiomegaly. The mediastinal contour is unchanged. The pulmonary vasculature is not engorged. The lungs and pleural spaces are generally clear. There is moderate thoracic spondylosis. Impression: Interval extubation. Stable cardiomegaly. Improved aeration in the lung bases. No adverse interval changes PROCEDURE INTERPRETED AT [facility] DEPARTMENT OF RADIOLOGY Final Report Signed by: Dr. Delma Carrington
[2017-06-17] MEDS: INSULIN REGULAR 100 UNIT/ML SUBCUT SCH (08:12)
[2017-06-17] MEDS: CYANOCOBALAMIN 500 MCG TABLET PO SCH (09:00)
[2017-06-17] MEDS: POTASSIUM GLUCONATE 500 MG TABLET PO SCH (09:00)
[2017-06-17] MEDS: MAGNESIUM CHLORIDE 64 MG TABLET PO SCH (09:00)
[2017-06-17] MEDS: RASAGILINE 0.5 MG TABLET PO SCH (09:01)
[2017-06-17] MEDS: ASPIRIN EC 81 MG TABLET PO SCH (09:01)
[2017-06-17] MEDS: CLOPIDOGREL 75 MG TABLET PO SCH (09:01)
[2017-06-17] MEDS: PRIMIDONE 50 MG TABLET PO SCH (09:02)
[2017-06-17] MEDS: GABAPENTIN 300 MG CAPSULE PO SCH (09:02)
[2017-06-17] MEDS: METOPROLOL SUCCINATE XL 50 MG TABLET PO SCH (09:03)
[2017-06-17] MEDS: ENOXAPARIN 40 MG/0.4 ML SYRINGE SUBCUT SCH (09:03)
[2017-06-17] MEDS: FERROUS SULFATE 325 MG TABLET PO SCH (09:04)
--- NOTE | 2017-06-17 09:18 | Discharge Summary ---
Hospital Course - Hospital Course Hospital Course: Ms. Hagan is a 87 year old female with past medical history of diabetes, HTN , coronary artery disease, chronic anemia who is in normal state of health until tonight. Patient woke up with tongue swelling. Patient could not breath and she had a medical alert button to push and called 911. After that she subsequently called her son. Her son came up to the hospital met her up here. Her tongue was protruding out of her mouth and swelling consistent with angioedema. She was intubated in the ER for airway protection. She was admitted to the ICU until her swelling improved. She has been extubated. Her swelling has resolved. She is back to usual state of health. She is being discharged home with [facility]. She will follow up with her PCP- Dr. Gomez. Her home medications were reviewed and reconciled. Her Lisinopril was stopped. - Time spent with patient Time with patient DS: Greater than 30 minutes (Total discharge time for this patient, including [id number] time, clinical documentation, medication reconciliation, and discharge planning was 39 minutes.) Diagnosis - Discharge Diagnosis (1) Angioedema Status: Resolved (2) Insulin dependent diabetes mellitus Status: Chronic (3) Hypertension Status: Chronic (4) CAD (coronary artery disease) Status: Chronic (5) Dyslipidemia Status: Chronic Specialty Discharge - Follow Up or Referrals Follow up with: Adeline Gomez MD [Physician] - 1 Week Discharge Plan - Discharge Data Disposition: Home Health Service Condition at Discharge: Stable Discharge Diet: advance to your usual diet Activity: resume usual activities as tolerated Hygiene: no restrictions Weight Bearing at Discharge: full weight bearing Driving: no restrictions Contact your physician if you experience:: fever over 101 - Discharge Medications Continue Nitroglycerin [Nitroglycerin SL Tab] 0.4 mg SL Q5M PRN PRN Reason: Chest Pain Pantoprazole Tab [Protonix Tab] 40 mg PO BEDTIME Metoprolol Succinate Xl [Toprol Xl] 50 mg PO DAILY Gabapentin 300 mg PO TID Atorvastatin [Lipitor] 20 mg PO BEDTIME Aspirin [Ecotrin] 81 mg PO DAILY Furosemide Tab [Lasix Tab] 40 mg PO DAILY PRN PRN Reason: Edema Rasagiline [Azilect] 1 mg PO DAILY Primidone 75 mg PO TID Magnesium Chloride [Mag Delay] 128 mg PO BID Insulin NPH Hum/Reg Insulin Hm [NovoLIN 70/30] 32 units SUBCUT AC BREAKFAST Insulin NPH Hum/Reg Insulin Hm [NovoLIN 70/30] 22 units SUBCUT DAILY W/SUPPER Potassium Gluconate 550 mg PO DAILY Sitagliptin Phos/Metformin HCl [Janumet Xr 50-1,000 mg Tablet] 2 each PO DAILY W/SUPPER Cyanocobalamin (Vitamin B-12) [Vitamin B-12] 1,000 mcg PO DAILY Discontinued Lisinopril 40 mg PO DAILY Clopidogrel [Plavix] 75 mg PO DAILY Ferrous Sulfate [Ferrous Sulfate Cap] 65 mg PO DAILY - Follow Up or Referral Follow Up: Adeline Gomez MD [Physician] - 1 Week - Forms/Instructions Instructions: Heart Failure (DC), Diabetes Mellitus Type 1 in Adults (DC), Angioedema (GEN) Exam - Constitutional Vitals: Period Temp Pulse Resp BP Sys/Walker Pulse Ox Last 24 Hr 97 F-98.7 F 57-88 11-20 105-130/57-77 88-100 Discharge Results Procedures and tests throughout hospitalization: Pending Orders 06/14/17 MRSA Surveillence, Inf Control Stat Labs on day of discharge: Labs from last 24 hours 06/16/17 06/16/17 06/16/17 21:02 15:41 11:11 POC Glucose 308 H 227 H 234 H 06/16/17 06/15/17 07:50 20:24 POC Glucose 264 H 185 H DS: Provider Date of admission: 06/14/17 03:58 Primary care physician: . No PCP Attending physician on admission: Chavez Vanegas MD Consults: 06/14/17 05:12 Consult to Physician [CONS] Routine Comment: Consulting Provider: Consult to Specialist Group: Pulmonology When should Consulting Provider be notified: In am 06/14/17 06:35 Consult to Dietitian [CONS] Routine Reason for Dietitian: Dietary Consult 06/14/17 08:00 Consult to Physician [CONS] Routine Comment: Angioedema, on ventilator Consulting Provider: Consult to Specialist Group: ENT When should Consulting Provider be notified: Now 06/15/17 05:51 Consult to Physician [CONS] Routine Comment: angioedema Consulting Provider: Camilo Bustillos Discharging clinician: Elsy Terrazas MD Expected date of discharge: 06/17/17
== END 2017-06-17 11:20 | disposition home health service (06) | DRG 915 ==
LOC: EDUNIT# → EDBD → N.ED 02:42 → N.EDINP 03:58 → SUATTDRO 03:58 → N.CC 04:52
PROVIDERS: ADMIT Internal Medicine; ATTEND Family Medicine